=== PATIENT | female | born 1965 | race Two or more races ===

== ENCOUNTER 2023-04-12 01:56 | Inpatient (IN) | payer OTHER ==
[2023-04-12 02:14] VITALS: BMI 31.1
[2023-04-12 03:03] LABS: BASO % 0.5 % (0-2.0); EOS % 0.3 % (0-4.5); HEMATOCRIT 38.1 % (32.4-45.2); HEMOGLOBIN 12.4 GM/dL (10.7-15.3); INR 1.19 (0.83-1.09); LYMPH % 14.3 % (8-40); MCHC 32.6 g/dl (32.0-36.0); MEAN CELL VOLUME 79.9 fl (80-96); MEAN PLT VOLUME 7.3 fl (7.5-11.1); MONO % 9.2 % (3.8-10.2); NEUT % 75.7 % (42.8-82.8); PLATELET COUNT 221 10^3/uL (134-434); PROTHROMBIN TIME (PATIENT) 13.8 SEC (9.7-13.0); RBC 4.76 M/mm3 (3.60-5.2); RDW 15.4 % (11.6-15.6); WHITE BLOOD COUNT 10.6 K/mm3 (4.0-10.0)
[2023-04-12 03:06] LABS: ACTIVATED PTT 33.4 SECONDS (25.2-36.5)
[2023-04-12 03:11] LABS: CALCIUM 9.1 mg/dL (8.5-10.1)
[2023-04-12 03:12] LABS: ALBUMIN 3.2 g/dl (3.4-5.0); BLOOD UREA NITROGEN 15.3 mg/dL (7-18)
[2023-04-12 03:15] LABS: CREATININE 0.7 mg/dL (0.55-1.3)
[2023-04-12 03:16] LABS: BILIRUBIN,TOTAL 0.5 mg/dL (0.2-1)
[2023-04-12 07:09] VITALS: TEMP 98.5
[2023-04-12] MEDS ORDERED: CELECOXIB 100 MG CAPSULE PO PRN (08:27)
[2023-04-12] MEDS ORDERED: SODIUM CHLORIDE 1,000 ML IV SCH (08:30)
[2023-04-12 09:08] LABS: EPI CELLS 1 /uL (0-25.1); HYALINE CASTS 0 /uL (0-3.1); URINE APPEARANCE CLEAR; URINE BACTERIA 7 /uL (0-1359); URINE BILIRUBIN NEGATIVE (NEGATIVE); URINE COLOR YELLOW; URINE GLUCOSE (UA) NEGATIVE (NEGATIVE); URINE KETONE NEGATIVE (NEGATIVE); URINE LEUK ESTERASE TRACE (NEGATIVE); URINE NITRITE NEGATIVE (NEGATIVE); URINE PROTEIN NEGATIVE (NEGATIVE); URINE RBC 16 /uL (0-23.9); URINE UROBILINOGEN 0.2 mg/dL (0.2-1.0); URINE WBC 11 /uL (0-25.8)
[2023-04-12] MEDS ORDERED: ENOXAPARIN NA (PORCINE) 40 MG/0.4 ML DISP.SYRIN SQ SCH (10:00)
[2023-04-12] MEDS ORDERED: ENOXAPARIN NA (PORCINE) 40 MG/0.4 ML DISP.SYRIN SQ ONE (10:38)
[2023-04-12] MEDS ORDERED: INSULIN ASPART SLIDING SCALE (NOVOLOG) 1 VIAL SQ SCH (11:00)
[2023-04-12 15:32] VITALS: BP 114/68; PULSE 96; RESP 18
[2023-04-12] MEDS ORDERED: ATORVASTATIN CA 10 MG TABLET (FP) PO SCH (22:00)
== END 2023-04-12 16:39 | disposition home or self-care (01) | DRG 422 ==
LOC: JER 01:56 → JERBED 04:13 → OBSVTOIN 11:18 → JERBED 11:18
PROVIDERS: ADMIT Internal Medicine; ATTEND Internal Medicine
DX: E86.0 Dehydration (principal); I10 Essential (primary) hypertension; E78.5 Hyperlipidemia, unspecified; E11.9 Type 2 diabetes mellitus without complications; R55 Syncope and collapse; J34.1 Cyst and mucocele of nose and nasal sinus; S01.112A Laceration without foreign body of left eyelid and periocular area, initial encounter; W18.30XA Fall on same level, unspecified, initial encounter; Y92.098 Other place in other non-institutional residence as the place of occurrence of the external cause; Y99.9 Unspecified external cause status
CPT/HCPCS: 0241U-QW; 36415; 70450-TC; 71045-TC-FY; 72125-TC; 80053; 81003; 82962; 84484; 85025; 85610; 85730; 87086; 93005; 93010; 93306-TC; 99285-25; G0378

== ENCOUNTER 2023-04-17 18:12 | Emergency (ER) | payer SELFPAY ==
[2023-04-17 18:20] VITALS: BP 108/72; PULSE 88; RESP 18; TEMP 97.6; BMI 32.9
[2023-04-17] MEDS ORDERED: ACETAMINOPHEN 1000 MG/100 ML BAG IVPB ONE (19:40)
[2023-04-17] MEDS ORDERED: SODIUM CHLORIDE 0.9% 500 ML INFUS.BAG IV ONE (19:40)
[2023-04-17 20:21] LABS: BASO % 0.4 % (0-2.0); EOS % 1.4 % (0-4.5); HEMATOCRIT 34.9 % (32.4-45.2); HEMOGLOBIN 11.6 GM/dL (10.7-15.3); LYMPH % 25.9 % (8-40); MCH 26.2 pg (25.7-33.7); MCHC 33.1 g/dl (32.0-36.0); MEAN CELL VOLUME 79.2 fl (80-96); MEAN PLT VOLUME 7.3 fl (7.5-11.1); MONO % 5.6 % (3.8-10.2); NEUT % 66.7 % (42.8-82.8); PLATELET COUNT 277 10^3/uL (134-434); RBC 4.41 M/mm3 (3.60-5.2); RDW 15.3 % (11.6-15.6); WHITE BLOOD COUNT 4.3 K/mm3 (4.0-10.0)
[2023-04-17 20:27] LABS: INR 1.06 (0.83-1.09); PROTHROMBIN TIME (PATIENT) 12.3 SEC (9.7-13.0)
[2023-04-17 20:30] LABS: ACTIVATED PTT 33.8 SECONDS (25.2-36.5)
[2023-04-17 20:35] LABS: POTASSIUM 4.3 mmol/L (3.5-5.1)
[2023-04-17 20:36] LABS: URINE APPEARANCE CLEAR; URINE BILIRUBIN NEGATIVE (NEGATIVE); URINE COLOR YELLOW; URINE GLUCOSE (UA) TRACE (NEGATIVE); URINE KETONE NEGATIVE (NEGATIVE)
[2023-04-17 20:37] LABS: CALCIUM 8.7 mg/dL (8.5-10.1)
[2023-04-17 20:37] LABS: PH,URINE 5.5 (5.0-8.0); URINE LEUK ESTERASE 1+ (NEGATIVE); URINE NITRITE NEGATIVE (NEGATIVE); URINE PROTEIN NEGATIVE (NEGATIVE); URINE UROBILINOGEN 0.2 mg/dL (0.2-1.0)
[2023-04-17 20:38] LABS: ALBUMIN 2.9 g/dl (3.4-5.0)
[2023-04-17 20:40] LABS: URINE RBC 0-2 /uL (0-23.9)
[2023-04-17 20:41] LABS: URINE BACTERIA RARE /uL (0-1359)
[2023-04-17 20:42] LABS: BILIRUBIN,TOTAL 0.3 mg/dL (0.2-1); TOT PROT 7.2 g/dl (6.4-8.2)
[2023-04-17] MEDS ORDERED: ACETAMINOPHEN INJECTION 100 ML IVPB ONE (20:45)
[2023-04-17 20:55] LABS: CREATININE 0.7 mg/dL (0.55-1.3)
[2023-04-17] MEDS ORDERED: CEFTRIAXONE 1,000 MG in DEXTROSE 5%-WATER - 50 ML IVPB ONE (23:41)
[2023-04-17] MEDS ORDERED: CEFTRIAXONE 1 GM/50 ML BAG ONE (23:54)
== END 2023-04-18 00:20 | disposition home or self-care (01) ==
LOC: JER 18:12
PROC: 3E033NZ Introduction of Analgesics, Hypnotics, Sedatives into Peripheral Vein, Percutaneous Approach (ICD-10-PCS; principal; 2023-04-17)
PROC: 3E033GC Introduction of Other Therapeutic Substance into Peripheral Vein, Percutaneous Approach (ICD-10-PCS; 2023-04-17)
DX: R10.32 Left lower quadrant pain (principal); R30.0 Dysuria; K92.1 Melena; J10.1 Influenza due to other identified influenza virus with other respiratory manifestations; N39.0 Urinary tract infection, site not specified; Z20.822 Contact with and (suspected) exposure to COVID-19
CPT/HCPCS: 0241U-QW; 36415; 74177-TC; 80053; 81003; 82272; 83605; 83690; 84484; 85025; 85610; 85730; 86850; 86900; 86901; 87040; 87077; 87086; 87186; 93005; 93010; 99285-25